=== PATIENT | female | born 1985 | race African-American/Black ===

== ENCOUNTER 2024-02-23 05:32 | Inpatient (IN) | payer OTHER ==
[~2024-02-23] VITALS: Ht 162.6 cm; Wt 82.7 kg
[2024-02-23] VITALS (57 sets, daily range): BP systolic 13–153; BP diastolic 41–99; PULSE 69–113; TEMP 97.5–98.2
[~2024-02-23 05:32] MED LIST: NATURAL IRON65 MG PO; PRENATAL TABLET PO; VITAMIND3 5000 PO
--- NOTE | 2024-02-23 05:40 | NUR ---
39 YO G1 PT ARRIVED TO OBT VIA WHEELCHAIR ACCOMPANIED BY SPOUSE AND UNIT TECH. PT CHANGED INTO GOWN AND PLACED ON EFM X2. PT PRESENTING WITH COMPLAINT OF CONTINUED CONTRACTIONS STARTING ABOUT 3 DAYS AGO THAT FEEL STONGER. PT DENIES LOF, VAGINAL BLEEDING, AND ENDORSES MOVEMENT. PT STATES THE CTX ARE ABOUT 3-4 MIN APART.
[2024-02-23] MEDS ORDERED: LR 1,000 ML IV PRN ×2 (06:00→19:00)
--- NOTE | 2024-02-23 06:55 | NUR ---
0[facility] [place] 3-4//-3. PT TOLERATED WELL. WILL NOTIFY PROVIDER.
--- NOTE | 2024-02-23 06:58 | NUR ---
ON UNIT, SBAR REPORT GIVEN. PER DR. PADRON "WE WILL WATCH HER ANOTHER HOUR AND I WILL CHECK HER."
[2024-02-23] MEDS ORDERED: ROPivacaine PF 0.2% 200 ML IV ONE (08:53)
--- NOTE | 2024-02-23 09:04 | NUR ---
TEOFILO WOLF, IN ROOM FOR EPIDURAL PLACEMENT. PT SITTING UPRIGHT ON EDGE OF BED. LR BOLUS INFUSING. PULSE OX IN PLACE. EFM CAT 1. VS STABLE. 0922 TEST DOSE ADMINISTERED PER TEOFILO WOLF. PT TOLERATED WELL. EFM CAT 1. VS STABLE.
[2024-02-23] MEDS ORDERED: LR 1,000 ML IV SCH (09:30)
[2024-02-23 09:37] LABS: BASO % 0.3 % (0.0-2.0); EOS % 0.4 % (0.0-4.0); GRAN # 4.8 K/mm3 (1.4-6.5); GRAN % 64.6 % (42.2-75.2); HEMATOCRIT 41.7 % (37.0-47.0); HEMOGLOBIN 14.4 g/dl (12.5-16.0); LYMPH # 1.5 K/mm3 (1.2-3.4); LYMPH % 20.6 % (20.0-51.0); MEAN CELL VOLUME 91 fl (80.0-100.0); MEAN CORPUSCULAR HEMOGLOBIN 31 pg (27-31); MEAN CORPUSCULAR HGB CONC 35 g/dl (33.0-37.0); MEAN PLATELET VOLUME 12.1 fl (7.4-10.4); MONO % 13.1 % (1.7-9.3); PLATELET COUNT 147 K/mm3 (130-400); REDCELL DISTRIBUTION WIDTH-CV 13.3 % (11.5-14.5)
[2024-02-23] MEDS ORDERED: diphenhydrAMINE 50 MG/ML 1 ML VIAL IV PRN (09:45)
[2024-02-23] MEDS ORDERED: Ondansetron 4 MG/2 ML VIAL IV PRN ×2 (09:45→19:00)
[2024-02-23] MEDS ORDERED: diphenhydrAMINE 25 MG CAP PO PRN (09:45)
[2024-02-23] MEDS ORDERED: Naloxone 0.4 MG/ML VIAL IV PRN ×2 (09:45→19:00)
[2024-02-23] MEDS ORDERED: ePHEDrine 50 MG/10 ML VIAL IV PRN (09:45)
--- NOTE | 2024-02-23 11:30 | NUR ---
DR. PADRON IN ROOM FOR SVE, /-2. PT TOLERATED WELL. VORB TO START PITOCIN.
--- NOTE | 2024-02-23 12:08 | NUR ---
DR. PADRON AT BEDSIDE TO PLACE IUPC. IUPC PLACED, PT TOLERATED WELL. VS STABLE. SVE /-3.
[2024-02-23] MEDS ORDERED: LR & Oxytocin 500 ML IV SCH (12:15)
--- NOTE | 2024-02-23 15:00 | NUR ---
DIANA FROM DR. PADRON TO TITRATE PITOCIN TO 30MU IF NEEDED.
[2024-02-23] MEDS ORDERED: Tranexamic Acid 1,000 MG in NS 100 ML IV ONE (18:30)
[2024-02-23] MEDS ORDERED: Chloroprocaine PF 3% (30 MG/ML) 20 ML VIAL ONE (18:34)
[2024-02-23] MEDS ORDERED: dexAMETHasone 10 MG/ML VIAL ONE (18:43)
[2024-02-23] MEDS ORDERED: Ondansetron 4 MG/2 ML VIAL ONE (18:43)
[2024-02-23] MEDS ORDERED: NS 10 ML IV ONE (18:43)
[2024-02-23] MEDS ORDERED: Ketorolac 30 MG/ML VIAL ONE (18:43)
--- NOTE | 2024-02-23 18:44 | NUR ---
1749 - Pt reporting new feeling of pressure in low front of abdomen. SVE /-3, moderate amount of blood noted on pad below pt, along with some small clots. Dr. Berg notified. 1814 - Dr. Berg to bedside to evaluate pt, discusses with pt at this time.
[2024-02-23] MEDS ORDERED: Azithromycin 500 MG in NS 250 ML IV ONE (18:45)
--- NOTE | 2024-02-23 18:46 | NUR ---
1819- DR. PADRON AT BEDSIDE. SVE WITH NO CHANGE NOTED. DECISION FOR C/SECTION. PITOCIN TURNED OFF. 1830- AZITHROMYCIN AND TXA ADMINISTERED PER ORDERS. PATIENT PREPPED FOR C/SECTION 1845- IUPC REMOVED. PATIENT TRANSFERRED TO OR VIA BED.
[2024-02-23] MEDS ORDERED: Magnes Hydrox (MOM) 80 MG/ML 30 ML CUP PO PRN (19:00)
[2024-02-23] MEDS ORDERED: Loratadine 10 MG TAB PO PRN (19:00)
[2024-02-23] MEDS ORDERED: Acetaminophen 500 MG TAB PO PRN (19:00)
[2024-02-23] MEDS ORDERED: oxyCODONE 5 MG TAB PO PRN (19:00)
[2024-02-23] MEDS ORDERED: Measles/Mumps/Rubella Virus Vaccine Live w Diluent 0.5 ML VIAL SQ SCH (19:00)
[2024-02-23] MEDS ORDERED: Methylergonovine 0.2 MG/ML 1 ML AMPUL ONE (19:19)
[2024-02-23] MEDS ORDERED: traZODone 50 MG TAB PO PRN (21:00)
--- NOTE | 2024-02-23 23:30 | NUR ---
2315- PATIENT ABLE TO LIFT BILATERAL LOWER EXTREMITIES, DENIES FEELING LIGHT HEADED OR NAUSEOUS. PATIENT UP SITTING ON EDGE OF BED. EPIDURAL CATHETER REMOVED WITH TIP INTACT. 2320- PATIENT AMBULATORY TO RESTROOM FOLLOWING DELIVERY. RODRÍGUEZ CATHETER REMOVED. PERICARE PROVIDED. CLEAN UNDERWEAR, GOWN ON. 2330- PATIENT AMBULATORY BACK TO BED. PLAN OF CARE EXPLAINED TO PATIENT AND SPOUSE. QUESTIONS INVITED AND ANSWERED.
[2024-02-24] MEDS ORDERED: Ibuprofen 800 MG TAB PO SCH (00:47)
[2024-02-24 05:25] VITALS: BP 118/74; PULSE 75; TEMP 98.5
[2024-02-24 07:00] VITALS: BP 118/74; PULSE 74; TEMP 98.5
[2024-02-24] MEDS ORDERED: Sennosides/Docusate 8.6-50 MG TAB PO SCH (08:00)
[2024-02-24 12:30] VITALS: BP 122/64; PULSE 79; TEMP 98.6
[2024-02-24 17:00] VITALS: BP 101/62; PULSE 92; TEMP 97.9
[2024-02-24 17:12] VITALS: BP 126/70; PULSE 89; TEMP 98.4
[2024-02-24 20:30] VITALS: BP 131/80; PULSE 80; TEMP 98.1
[2024-02-25 07:00] VITALS: BP 136/74; PULSE 77; TEMP 98.5
[2024-02-25] MEDS ORDERED: ROXICODONE 55 MG/TAB PO (09:49)
[2024-02-25] MEDS ORDERED: TYLENOL 500MG500 MG PO (09:49)
[2024-02-25] MEDS ORDERED: IBU800 M1 PO (09:49)
== END 2024-02-25 15:00 | disposition home or self-care (01) | DRG 787 ==
LOC: LDRO 05:32 → LDR 05:40 → LDRO 08:23 → LDR 08:25 → OB 22:40
PROVIDERS: Obstetrics & Gynecology; ADMIT Obstetrics & Gynecology
PROC: 10D00Z1 Extraction of Products of Conception, Low, Open Approach (ICD-10-PCS; principal; 2024-02-23)
DX: O34.13 Maternal care for benign tumor of corpus uteri, third trimester (principal); O33.0 Maternal care for disproportion due to deformity of maternal pelvic bones; O99.02 Anemia complicating childbirth; O69.81X0 Labor and delivery complicated by cord around neck, without compression, not applicable or unspecified; O76 Abnormality in fetal heart rate and rhythm complicating labor and delivery; O69.89X0 Labor and delivery complicated by other cord complications, not applicable or unspecified; D25.2 Subserosal leiomyoma of uterus; O75.89 Other specified complications of labor and delivery; Z3A.39 39 weeks gestation of pregnancy; Z37.0 Single live birth; Z86.16 Personal history of COVID-19
CPT/HCPCS: J0456; J0665; J0690; J1100; J1885; J2210; J2401; J2405; J2590; J2795; J7050; J7120